=== PATIENT | female | born 1980 | race American Indian/Alaskan Native ===

== ENCOUNTER 2022-01-21 06:59 | Day surgery (SDC) | payer OTHER ==
[~2022-01-21 06:59] MED LIST: SODIUM CHLORIDE 0.9% 1000 ML 1,000 ML IV SCH
[2022-01-21] MEDS ORDERED: WATER FOR IRRIG STERILE 250 ML BOTTLE IR ONE (08:04)
[2022-01-21] MEDS ORDERED: WATER FOR IRRIG STERILE 1,000 ML BOTTLE ONE (08:04)
--- NOTE | 2022-01-21 08:09 | Anesthesia Day of Surgery ---
Anesthesia Day of Surgery - Day of Surgery Patient Examined: Yes Patient H&P Reviewed: Yes Patient is NPO: Yes
--- NOTE | 2022-01-21 08:11 | Anesthesia Consultation ---
Anesthesia Consult and Med Hx Date of service: 01/21/22 - Airway Anesthetic Teeth Evaluation: Good ROM Head & Neck: Adequate Mental/Hyoid Distance: Adequate Mallampati Class: Class I Intubation Access Assessment: Good - Pulmonary Exam CTA: Yes - Cardiac Exam Cardiac Exam: RRR - Pre-Operative Health Status ASA Pre-Surgery Classification: ASA2 Proposed Anesthetic Plan: MAC - Gastrointestinal Hx Gastroesophageal Reflux Disease: Yes - Endocrine Hx Hypothyroidism: Yes - Other Systems Hx Obesity: Yes
[2022-01-21] MEDS ORDERED: propofoL 200 MG/20 ML VIAL IV ONE ×3 (08:15→09:22)
[2022-01-21] MEDS ORDERED: LIDOCAINE MPF (2%) 20 MG/1 ML VIAL 5 ML ONE (08:15)
--- NOTE | 2022-01-21 09:21 | Procedure Note ---
Date of procedure: 01/21/22 Pre-op diagnosis: Epigastric Psain/ H/O NSAID use/ Peptic Ulcer Disease Post-op diagnosis: other (No Peptic Ulcer disease noted/ Mild to Moderate Erosive Esophagitis/ R/O Eosinophilic Esophagitis/ Gastritis/R/O Celiac disease) Procedure: EGD with Biopsy Anesthesia: [facility] [place] Surgeon: BALDO ORTIZ Estimated blood loss: minimal Pathology: list Specimen disposition: to lab Condition: stable Disposition: same day (Continue treatment with PPI, prn Bentyl for abdominal pain and OTC Probiotic. Avoid aspirin and NSAID for 5 days. othjerwise resume previous medication d F/U in 1 to 2 weeks ([phone]).)
--- NOTE | 2022-01-21 09:30 | Operative Report ---
DATE OF SURGERY: 01/21/2022 PROCEDURE PERFORMED: EGD with biopsy. INDICATIONS: This is a 41-year-old, slightly obese -[place] female with an underlying history of hyperlipidemia, history of NSAID use on a regular basis, who has lately been having some epigastric pain and discomfort, which has been persisting in spite of treatment with Pepcid and Protonix. The patient denies any history of smoking, rarely drinks alcohol. EGD was done to make sure there was not any associated peptic ulcer disease. DESCRIPTION OF PROCEDURE: Procedure was done after getting informed consent with MAC anesthesia. Instrument was passed through the hypopharynx into the esophagus, which showed [id number] distal erosive esophagitis. Photodocumentation was done from the distal esophagus to assess for the severity of the erosive esophagitis and biopsy was done to assess for the esophagitis. Additional biopsy was also done from the mid esophagus to rule out for eosinophilic esophagitis. The stomach showed some gastritis in the antrum. No additional pathology was noted in the straight or the retroverted view. The pylorus was patent. The duodenum in the first and the second portion appeared normal. Biopsy was done from the second part to rule out for possible celiac disease. Additional biopsy was done from the gastric antrum and gastric body and angular incisura to rule out for H. pylori and atrophic gastritis. There was minimal bleeding associated with the procedure. No complications associated with the procedure. ASSESSMENT: Epigastric pain, history of NSAID use. No peptic ulcer disease noted. Lnro-[id number]-vwudcson erosive esophagitis, gastritis. Rule out eosinophilic esophagitis, rule out celiac disease. PLAN: To continue treatment with PPI. The patient will also be placed on [id number] probiotics to follow the overall wellbeing of her gut and will also be placed on Bentyl on a p.r.n. basis for abdominal pain. The patient will be asked to avoid aspirin and aspirin-related products for the next 5-6 days, otherwise resume previous medication and follow up in the office in 1-2 weeks' time. Procedure was done in the GI lab with assistance of the GI lab team, which included the GI nurse, the system technologist and with assistance of anesthesia. TID: [id number] RECEIPT: [id number] CON/DANGELO
--- NOTE | 2022-01-21 10:33 | Post Anesthesia Evaluation ---
- Post Anesthesia Evaluation Patient Participated: Yes Airway Patent: Yes Stable Respiratory Function: Yes Nausea/Vomiting: No Temp > 96.8F: Yes Pain Manageable: Yes Adequeate Hydration: Yes Anesthesia Complications: No
[2022-01-21 10:56] VITALS: BP 122/74
== END 2022-01-21 11:17 | disposition home or self-care (01) ==
LOC: GIO 06:59
DX: R10.13 Epigastric pain (principal); K29.70 Gastritis, unspecified, without bleeding; K21.00 Gastro-esophageal reflux disease with esophagitis, without bleeding; K31.89 Other diseases of stomach and duodenum; E78.00 Pure hypercholesterolemia, unspecified; E66.9 Obesity, unspecified; E78.5 Hyperlipidemia, unspecified; E03.9 Hypothyroidism, unspecified; Z79.899 Other long term (current) drug therapy; Z98.51 Tubal ligation status; Z98.891 History of uterine scar from previous surgery; Z68.34 Body mass index [BMI] 34.0-34.9, adult
CPT/HCPCS: 43239; 88305; 88342; J2704; J3490; J7030; J7120; Q0162